=== PATIENT | male | born 1965 | race Caucasian/White ===

== ENCOUNTER 2021-07-03 03:31 | Inpatient (IN) | payer BC ==
[~2021-07-03] VITALS: Ht 182.9 cm; Wt 104.5 kg
[~2021-07-03 03:31] MED LIST: ASPI-612 PO; CYAN500T9 PO; SENN1TAB82 PO
[2021-07-03] MEDS ORDERED: normal saline 1000ML IV soln IVB ONE ×2 (04:05→05:20)
[2021-07-03] MEDS ORDERED: diphenhydrAMINE 50 mg/ml inj IV ONE (04:05)
[2021-07-03] MEDS ORDERED: LIDOcaine Viscous 15ml cup MM ONE (04:05)
[2021-07-03] MEDS ORDERED: metoclopramide 5 mg/ml inj IV ONE (04:05)
[2021-07-03] MEDS ORDERED: mag hydrox/Alum hydrox/simeth 30ml oral suspension PO ONE (04:05)
[2021-07-03 04:14] LABS: BASOPHILS # (AUTO) 0.1 X10'3 (0-0.2); BASOPHILS % (AUTO) 0.6 % (0-1); EOSINOPHILS # (AUTO) 0.3 X10'3 (0-0.9); EOSINOPHILS % (AUTO) 2.6 % (0-6); HEMATOCRIT 47.3 % (42.0-52.0); HEMOGLOBIN 16.8 g/dl (14.0-17.9); LYMPHOCYTES % (AUTO) 19.5 % (21-51); MEAN CORPUSCULAR HEMOGLOBIN 32.6 PG (27.0-31.0); MEAN CORPUSCULAR HGB CONC 35.5 g/dL (33.0-36.5); MEAN PLATELET VOLUME 8.2 FL (7.4-10.4); MONOCYTES # (AUTO) 0.9 X10'3 (0-0.9); MONOCYTES % (AUTO) 8.5 % (2-12); NEUTROPHILS # (AUTO) 7.2 X10'3 (1.8-7.7); NEUTROPHILS % (AUTO) 68.8 % (42-75); PLATELET COUNT 272 X10'3 (140-440); RED BLOOD COUNT 5.14 X10'6 (4.70-6.10); RED CELL DISTRIBUTION WIDTH 12.4 % (11.5-14.5); WHITE BLOOD COUNT 10.5 X10'3 (4.5-11.0)
[2021-07-03 04:22] LABS: ALANINE AMINOTRANSFERASE 51 U/L (12-78); ALBUMIN 4.2 G/DL (3.4-5.0); ALBUMIN/GLOBULIN RATIO 1.1 (1.1-1.5); ALKALINE PHOSPHATASE 72 IU/L (46-116); ANION GAP 13 (8-16); ASPARTATE AMINO TRANSFERASE 11 U/L (10-37); BILIRUBIN,TOTAL 0.7 MG/DL (0.1-1.0); BLOOD UREA NITROGEN 10 MG/DL (7-18); BUN/CREATININE RATIO 10.1 (5.4-32.0); CALCIUM 9.4 MG/DL (8.5-10.1); CHLORIDE 99 MMOL/L (99-107); CREATININE 0.99 MG/DL (0.60-1.10); GLUCOSE 350 MG/DL (70-104); SODIUM 138 MMOL/L (135-145); eGFR 78 ML/MIN
[2021-07-03 04:45] LABS: LIPASE 7835 U/L (73-393)
[2021-07-03] MEDS ORDERED: morphine 4 MG/ML inj SYRINge IV ONE ×2 (05:00→05:35)
[2021-07-03] MEDS ORDERED: lactulose 20gm/30ml cup PO ONE (05:20)
[2021-07-03 05:24] LABS: PLATELET ESTIMATE NORMAL
[2021-07-03 05:25] LABS: TEAR DROP CELLS FEW
[2021-07-03 05:26] LABS: SPHEROCYTES FEW
[2021-07-03] MEDS ORDERED: acetaminophen 325mg tablet PO PRN (07:30)
[2021-07-03] MEDS ORDERED: morphine 2 MG/ML inj. syringe IV PRN ×2 (07:30→11:20)
[2021-07-03] MEDS ORDERED: magnesium Cl slow-release 64mg tablet PO PRN (07:30)
[2021-07-03] MEDS ORDERED: magnesium 4gm in 100ml NS 100 ML IV PRN (07:30)
[2021-07-03] MEDS: normal saline 1000ml 1,000 ML IV SCH ×2 (07:30→17:30)
[2021-07-03] MEDS ORDERED: potassium Cl 20 mEq SR tablet PO PRN ×2 (07:30)
[2021-07-03] MEDS ORDERED: potassium CL 10mEq/100ml bag 100 ML IV PRN (07:30)
[2021-07-03] MEDS ORDERED: magnesium 2GM in 50ml NS 50 ML IV PRN (07:30)
[2021-07-03] MEDS: K and/or MAG REPLACEMENT MC SCH ×2 (08:00→19:08)
[2021-07-03 09:13] LABS: MAGNESIUM 1.8 MG/DL (1.5-2.4); POTASSIUM 4.1 MMOL/L (3.5-5.1)
[2021-07-03] MEDS ORDERED: EMPA25TA PO (10:07)
[2021-07-03] MEDS ORDERED: METF-438 PO (10:07)
--- NOTE | 2021-07-03 11:15 | NUR ---
PT COMPLAINING OF WORSENING PAIN. CALLED. DR. MARTINEZ
--- NOTE | 2021-07-03 11:20 | NUR ---
DR. MARTINEZ GAVE ORDERS FOR 2MG MORPHINE IVP Q 4 PRN.
--- NOTE | 2021-07-03 11:35 | NUR ---
MORPHINE ADMINISTERED. PT STATING "I THINK I MAY NEED TO GO TO [facility] IF MY DR ISNT GOING TO COME BACK TO SEE ME." I EXPLAINED THAT HIS DR HAS BEEN DOWN TO SEE HIM AND HIS CARE IS BEING MONITORED. PT STATING THE PAIN IS TOO BAD, THIS MEDICATION IS NOT WORKING.
[2021-07-03 14:43] LABS: CLARITY,URINE CLEAR (Clear); COLOR,URINE YELLOW (Yellow); GLUCOSE, URINE >=1000 mg/dl (Neg); KETONES,URINE 80 mg/dl (Neg); NITRITES, URINE NEGATIVE (Neg); OCCULT BLOOD,URINE NEGATIVE (Neg); PROTEIN,URINE NEGATIVE (Neg); UA COLLECTION TYPE CLN CATCH MIDSTREAM; UROBILINOGEN,URINE 0.2 E.U/dL (0.2-1.0)
[2021-07-03 14:44] LABS: LEUKOCYTE ESTERASE ,URINE NEGATIVE (Neg)
[2021-07-03 14:59] LABS: BACTERIA,URINE FEW /HPF (Neg); RBC,URINE 0-2 /HPF (0-2); SQUAMOUS EPITHELIAL CELL,UR FEW /LPF (FEW); WBC,URINE 0-4 /HPF (0-4)
[2021-07-03] MEDS: HYDROmorphone 1 mg/ml syringe IV PRN ×2 (15:37→20:12)
[2021-07-03] MEDS: ondansetron/PF 4mg/2ml inj IV PRN (15:40)
[2021-07-03 20:00] VITALS: BP 151/97
[2021-07-03] MEDS ORDERED: temazepam 15mg capsule PO PRN (21:00)
[2021-07-03] MEDS ORDERED: glucagon, human recombinant 1mg kit SUBCUT PRN (23:35)
[2021-07-03] MEDS ORDERED: dextrose ORAL solution 15 GM/59 ML bottle PO PRN ×2 (23:35)
[2021-07-03] MEDS ORDERED: MESSAGE TO PHARMACY PO ONE (23:35)
[2021-07-03] MEDS ORDERED: dextrose 50%-water 50ml dispensing syringe IV PRN ×2 (23:35)
[2021-07-04] VITALS: BP 130/84
[2021-07-04] MEDS: HYDROmorphone 1 mg/ml syringe IV PRN ×5 (00:13→20:56)
[2021-07-04] MEDS: ondansetron/PF 4mg/2ml inj IV PRN ×2 (00:15→21:01)
[2021-07-04] MEDS: normal saline 1000ml 1,000 ML IV SCH ×3 (04:12→23:09)
[2021-07-04 06:20] LABS: BASOPHILS % (AUTO) 0.1 % (0-1); EOSINOPHILS % (AUTO) 0 % (0-6); HEMATOCRIT 45.5 % (42.0-52.0); HEMOGLOBIN 15.9 g/dl (14.0-17.9); LYMPHOCYTES # (AUTO) 1.2 X10'3 (1.1-4.8); MEAN CORPUSCULAR HEMOGLOBIN 32.9 PG (27.0-31.0); MEAN CORPUSCULAR HGB CONC 34.9 g/dL (33.0-36.5); MEAN CORPUSCULAR VOLUME 94.4 FL (78-98); MEAN PLATELET VOLUME 7.9 FL (7.4-10.4); MONOCYTES # (AUTO) 1.3 X10'3 (0-0.9); MONOCYTES % (AUTO) 7.8 % (2-12); NEUTROPHILS # (AUTO) 14.3 X10'3 (1.8-7.7); NEUTROPHILS % (AUTO) 85.1 % (42-75); PLATELET COUNT 267 X10'3 (140-440); RED BLOOD COUNT 4.82 X10'6 (4.70-6.10); RED CELL DISTRIBUTION WIDTH 12.3 % (11.5-14.5); WHITE BLOOD COUNT 16.8 X10'3 (4.5-11.0)
[2021-07-04 06:32] LABS: ALBUMIN 3.6 G/DL (3.4-5.0); ANION GAP 9 (8-16); BLOOD UREA NITROGEN 9 MG/DL (7-18); BUN/CREATININE RATIO 10.6 (5.4-32.0); CALCIUM 8.2 MG/DL (8.5-10.1); CHLORIDE 106 MMOL/L (99-107); CHOL/HDL RATIO 5.6 (0.00-4.99); CHOLESTEROL 217 MG/DL (0-200); CREATININE 0.85 MG/DL (0.60-1.10); GLUCOSE 237 MG/DL (70-104); HDL CHOLESTEROL 39 MG/DL (35-60); LDL CHOLESTEROL 155 MG/DL (50-100); MAGNESIUM 1.9 MG/DL (1.5-2.4); POTASSIUM 3.9 MMOL/L (3.5-5.1); SODIUM 142 MMOL/L (135-145); TRIGLYCERIDES 104 MG/DL (20-135); eGFR > 90 ML/MIN
[2021-07-04 07:00] VITALS: BP 126/76
[2021-07-04] MEDS: aspirin 81mg, enteric-coated 1 TAB TABLET.DR PO SCH ×2 (07:15→21:04)
[2021-07-04] MEDS: K and/or MAG REPLACEMENT MC SCH ×2 (07:15→20:00)
[2021-07-04] MEDS: insulin Lispro (HumaLOG) vial - multi-dose SQ SCH ×3 (08:41→17:33)
--- NOTE | 2021-07-04 11:31 | NUR ---
Diabetes consult: Noted A1C 10 this admit. Provided pt w/ written and verbal DM ed w/ RD contact info. Pt receptive of information. Addendum: 07/04/21 at [address] Amended: Links added.
[2021-07-04 11:52] VITALS: BP 140/86
[2021-07-04 15:04] LABS: LIPASE 2965 U/L (73-393)
--- NOTE | 2021-07-04 18:31 | NUR ---
Problems reprioritized. Patient report given, questions answered & plan of care reviewed with MAMI iSmon.
[2021-07-04 20:00] VITALS: BP 139/86
[2021-07-04] MEDS: insulin glargine (Lantus) pen - multi-dose SQ SCH (22:58)
[2021-07-05] VITALS: BP 107/76
--- NOTE | 2021-07-05 05:37 | NUR ---
left msg for dr elias that pt expressed concern that his urine was concentrated orange in color. awaiting callback
[2021-07-05 06:09] LABS: BASOPHILS % (AUTO) 0.2 % (0-1); EOSINOPHILS % (AUTO) 0.2 % (0-6); HEMATOCRIT 48.6 % (42.0-52.0); HEMOGLOBIN 16.8 g/dl (14.0-17.9); LYMPHOCYTES # (AUTO) 1.3 X10'3 (1.1-4.8); LYMPHOCYTES % (AUTO) 7.5 % (21-51); MEAN CORPUSCULAR HEMOGLOBIN 33.1 PG (27.0-31.0); MEAN CORPUSCULAR HGB CONC 34.7 g/dL (33.0-36.5); MEAN CORPUSCULAR VOLUME 95.5 FL (78-98); MEAN PLATELET VOLUME 8.3 FL (7.4-10.4); MONOCYTES # (AUTO) 1.3 X10'3 (0-0.9); MONOCYTES % (AUTO) 7.7 % (2-12); NEUTROPHILS % (AUTO) 84.4 % (42-75); PLATELET COUNT 247 X10'3 (140-440); RED BLOOD COUNT 5.09 X10'6 (4.70-6.10); RED CELL DISTRIBUTION WIDTH 12.3 % (11.5-14.5); WHITE BLOOD COUNT 16.6 X10'3 (4.5-11.0)
[2021-07-05 06:14] LABS: ALBUMIN 3.4 G/DL (3.4-5.0); ANION GAP 11 (8-16); BLOOD UREA NITROGEN 11 MG/DL (7-18); BUN/CREATININE RATIO 13.4 (5.4-32.0); CALCIUM 8.7 MG/DL (8.5-10.1); CHLORIDE 98 MMOL/L (99-107); CREATININE 0.82 MG/DL (0.60-1.10); GLUCOSE 178 MG/DL (70-104); LIPASE 449 U/L (73-393); MAGNESIUM 2.2 MG/DL (1.5-2.4); POTASSIUM 3.7 MMOL/L (3.5-5.1); SODIUM 135 MMOL/L (135-145); TOTAL CARBON DIOXIDE 25.8 MMOL/L (24-32); eGFR > 90 ML/MIN
[2021-07-05 07:00] VITALS: BP 138/78
[2021-07-05] MEDS: K and/or MAG REPLACEMENT MC SCH ×2 (07:28→20:00)
[2021-07-05] MEDS: aspirin 81mg, enteric-coated 1 TAB TABLET.DR PO SCH ×2 (07:28→20:16)
[2021-07-05] MEDS: levoFLOXACIN-Levaquin 500mg/D5 100 ML IV SCH (09:10)
[2021-07-05] MEDS: normal saline 1000ml 1,000 ML IV SCH ×3 (09:13→23:26)
--- NOTE | 2021-07-05 09:21 | NUR ---
PAGER ID: [phone] MESSAGE: [id number] Anyi Saini: JORDIN.. positive MRSA in nares. thanks! bear [phone]
[2021-07-05] MEDS: ondansetron/PF 4mg/2ml inj IV PRN (12:15)
[2021-07-05] MEDS: HYDROmorphone 1 mg/ml syringe IV PRN ×3 (12:17→23:37)
[2021-07-05 12:30] VITALS: BP 140/87
--- NOTE | 2021-07-05 18:17 | NUR ---
Problems reprioritized. Patient report given, questions answered & plan of care reviewed with MAMI Simon.
[2021-07-05] MEDS: insulin Lispro (HumaLOG) vial - multi-dose SQ SCH (18:55)
[2021-07-05 20:00] VITALS: BP 142/83
[2021-07-05] MEDS: lactobacillus rhamnosus 10,000 MMU CELLS/CAPSULE PO SCH (20:16)
[2021-07-05] MEDS: insulin glargine (Lantus) pen - multi-dose SQ SCH (22:29)
[2021-07-06] VITALS: BP 146/86
[2021-07-06] MEDS: normal saline 1000ml 1,000 ML IV SCH (05:05)
[2021-07-06] MEDS: HYDROmorphone 1 mg/ml syringe IV PRN (05:31)
[2021-07-06 06:16] LABS: BASOPHILS % (AUTO) 0.2 % (0-1); EOSINOPHILS # (AUTO) 0.2 X10'3 (0-0.9); EOSINOPHILS % (AUTO) 1.4 % (0-6); HEMATOCRIT 43.1 % (42.0-52.0); LYMPHOCYTES # (AUTO) 1.3 X10'3 (1.1-4.8); LYMPHOCYTES % (AUTO) 8.7 % (21-51); MEAN CORPUSCULAR HGB CONC 34.7 g/dL (33.0-36.5); MEAN CORPUSCULAR VOLUME 95.2 FL (78-98); MEAN PLATELET VOLUME 8.2 FL (7.4-10.4); MONOCYTES # (AUTO) 1.5 X10'3 (0-0.9); MONOCYTES % (AUTO) 10.5 % (2-12); NEUTROPHILS # (AUTO) 11.5 X10'3 (1.8-7.7); NEUTROPHILS % (AUTO) 79.2 % (42-75); PLATELET COUNT 274 X10'3 (140-440); RED BLOOD COUNT 4.53 X10'6 (4.70-6.10); RED CELL DISTRIBUTION WIDTH 12.7 % (11.5-14.5); WHITE BLOOD COUNT 14.6 X10'3 (4.5-11.0)
[2021-07-06 06:19] LABS: ALBUMIN 2.9 G/DL (3.4-5.0); ANION GAP 6 (8-16); BLOOD UREA NITROGEN 11 MG/DL (7-18); BUN/CREATININE RATIO 14.7 (5.4-32.0); CALCIUM 8.2 MG/DL (8.5-10.1); CHLORIDE 105 MMOL/L (99-107); CREATININE 0.75 MG/DL (0.60-1.10); GLUCOSE 159 MG/DL (70-104); MAGNESIUM 2.1 MG/DL (1.5-2.4); POTASSIUM 3.4 MMOL/L (3.5-5.1); SODIUM 136 MMOL/L (135-145); TOTAL CARBON DIOXIDE 24.7 MMOL/L (24-32); eGFR > 90 ML/MIN
--- NOTE | 2021-07-06 06:46 | NUR ---
Patient in room [facility] 345A. I have received report from MAMI ARTEAGA and had the opportunity to ask questions and assume patient care.
[2021-07-06 07:00] VITALS: BP 157/91
[2021-07-06] MEDS: K and/or MAG REPLACEMENT MC SCH (08:00)
[2021-07-06] MEDS: lactobacillus rhamnosus 10,000 MMU CELLS/CAPSULE PO SCH (09:36)
[2021-07-06] MEDS ORDERED: METR-159 PO (09:36)
[2021-07-06] MEDS: levoFLOXACIN-Levaquin 500mg/D5 100 ML IV SCH (09:36)
[2021-07-06] MEDS ORDERED: LEVO500T90 PO (09:36)
[2021-07-06] MEDS: aspirin 81mg, enteric-coated 1 TAB TABLET.DR PO SCH (09:36)
[2021-07-06 10:09] LABS: LIPASE 134 U/L (73-393)
[2021-07-06 11:00] VITALS: BP 136/81
--- NOTE | 2021-07-06 12:00 | NUR ---
PATIENT STABLE AND APPROPRIATE FOR DISCHARGE, IV TAKEN OUT, EDUCATION GIVEN, NEW MEDS E-SCRIPTED TO PREFERRED PHARMACY, ALL BELONGINGS SENT WITH PATIENT, PATIENT TAKEN TO LOBBY BY WHEELCHAIR TO AN AWAITING CAR WHERE PATIENT'S FAMILY MEMBER WILL TAKE PATIENT HOME
[2021-07-07] MEDS ORDERED: HYDR-3965 PO (00:11)
[2021-07-07] MEDS ORDERED: ONDA8TAB13 PO (00:27)
== END 2021-07-06 12:11 | disposition home or self-care (01) | DRG 391 ==
LOC: ER 03:32 → ED HOLD 07:29 → SUR 3N 19:45
PROVIDERS: ADMIT Internal Medicine; ATTEND Internal Medicine
DX: K52.9 Noninfective gastroenteritis and colitis, unspecified (principal); K85.90 Acute pancreatitis without necrosis or infection, unspecified; E11.9 Type 2 diabetes mellitus without complications; F17.210 Nicotine dependence, cigarettes, uncomplicated; R03.0 Elevated blood-pressure reading, without diagnosis of hypertension; Z79.82 Long term (current) use of aspirin; Z79.84 Long term (current) use of oral hypoglycemic drugs; Z86.711 Personal history of pulmonary embolism; Z71.6 Tobacco abuse counseling
CPT/HCPCS: 36415; 71045; 74176; 80048; 80053; 80061; 81001; 82948; 83036; 83690; 83735; 84132; 84484; 85008; 85025; 87081; 93005; 99285; G0378; J1170; J1200; J1815; J1956; J2270; J2405; J2765; J7030

== ENCOUNTER 2021-07-06 18:47 | Emergency (ER) | payer BC ==
[~2021-07-06] VITALS: Ht 182.9 cm; Wt 106.8 kg
[~2021-07-06 18:47] MED LIST changes: +EMPA25TA PO; +LEVO500T90 PO; +METF-438 PO; +METR-159 PO
[2021-07-06 20:58] LABS: BASOPHILS % (AUTO) 0.3 % (0-1); EOSINOPHILS # (AUTO) 0.1 X10'3 (0-0.9); EOSINOPHILS % (AUTO) 1.1 % (0-6); HEMATOCRIT 41.4 % (42.0-52.0); HEMOGLOBIN 14.8 g/dl (14.0-17.9); LYMPHOCYTES # (AUTO) 1.3 X10'3 (1.1-4.8); MEAN CORPUSCULAR HEMOGLOBIN 32.9 PG (27.0-31.0); MEAN CORPUSCULAR HGB CONC 35.7 g/dL (33.0-36.5); MEAN CORPUSCULAR VOLUME 92.2 FL (78-98); MEAN PLATELET VOLUME 7.9 FL (7.4-10.4); MONOCYTES # (AUTO) 1.5 X10'3 (0-0.9); MONOCYTES % (AUTO) 11.8 % (2-12); NEUTROPHILS # (AUTO) 9.9 X10'3 (1.8-7.7); NEUTROPHILS % (AUTO) 76.8 % (42-75); PLATELET COUNT 308 X10'3 (140-440); RED BLOOD COUNT 4.49 X10'6 (4.70-6.10); RED CELL DISTRIBUTION WIDTH 12.3 % (11.5-14.5); WHITE BLOOD COUNT 12.9 X10'3 (4.5-11.0)
[2021-07-06 21:13] LABS: ALANINE AMINOTRANSFERASE 22 U/L (12-78); ALBUMIN/GLOBULIN RATIO 0.7 (1.1-1.5); ALKALINE PHOSPHATASE 67 IU/L (46-116); ANION GAP 11 (8-16); ASPARTATE AMINO TRANSFERASE 14 U/L (10-37); BLOOD UREA NITROGEN 10 MG/DL (7-18); BUN/CREATININE RATIO 13.3 (5.4-32.0); CALCIUM 8.5 MG/DL (8.5-10.1); CHLORIDE 102 MMOL/L (99-107); CREATININE 0.75 MG/DL (0.60-1.10); GLUCOSE 168 MG/DL (70-104); LIPASE 88 U/L (73-393); POTASSIUM 3.1 MMOL/L (3.5-5.1); SODIUM 139 MMOL/L (135-145); TOTAL CARBON DIOXIDE 25.9 MMOL/L (24-32); TOTAL PROTEIN 7.1 G/DL (6.4-8.2); eGFR > 90 ML/MIN
[2021-07-06] MEDS ORDERED: ondansetron/PF 4mg/2ml inj IV ONE (22:55)
[2021-07-06] MEDS ORDERED: morphine 2 MG/ML inj. syringe IV ONE (22:55)
[2021-07-06 23:03] LABS: ETHANOL < 0.010 GM/DL (0.0-0.010)
[2021-07-06] MEDS ORDERED: potassium CL 10mEq/100ml bag 100 ML IV PRN (23:10)
[2021-07-06] MEDS ORDERED: calcium chloride 100 MG/1 ML inj IV ONE (23:10)
[2021-07-07] MEDS ORDERED: HYDR-3965 PO (00:11)
[2021-07-07] MEDS ORDERED: proCHLORperazine 10 MG/2 ml inj IV ONE (00:15)
[2021-07-07] MEDS ORDERED: morphine 2 MG/ML inj. syringe IV ONE (00:15)
[2021-07-07] MEDS ORDERED: ONDA8TAB13 PO (00:27)
[2021-07-07 01:33] VITALS: BP 156/86
== END 2021-07-07 01:15 | disposition home or self-care (01) ==
LOC: ER 18:48
DX: K85.90 Acute pancreatitis without necrosis or infection, unspecified (principal); E87.6 Hypokalemia; R11.2 Nausea with vomiting, unspecified; R10.84 Generalized abdominal pain; E11.9 Type 2 diabetes mellitus without complications; Z87.01 Personal history of pneumonia (recurrent); Z98.890 Other specified postprocedural states; Z72.89 Other problems related to lifestyle; Z79.82 Long term (current) use of aspirin; Z79.2 Long term (current) use of antibiotics; Z79.899 Other long term (current) drug therapy
CPT/HCPCS: 36415; 80053; 80320; 83690; 83735; 85025; 96374; 96375; 96376; 99284; J0780; J2270; J2405

== ENCOUNTER 2023-10-18 17:04 | Inpatient (IN) | payer BC ==
[~2023-10-18] VITALS: Ht 182.9 cm; Wt 106.8 kg
[~2023-10-18 17:04] MED LIST changes: -CYAN500T9 PO; -LEVO500T90 PO; -METR-159 PO; +ONDA8TAB13 PO; -SENN1TAB82 PO
[2023-10-18] MEDS: ondansetron/PF 4mg/2ml inj IV ONE (18:32)
[2023-10-18] MEDS: morphine 4 MG/ML inj SYRINge IV ONE (18:39)
[2023-10-18] MEDS: normal saline 1000ML IV soln IV ONE (18:39)
[2023-10-18 18:43] LABS: ALANINE AMINOTRANSFERASE 37 U/L (12-78); ALBUMIN 4.6 G/DL (3.4-5.0); ALBUMIN/GLOBULIN RATIO 1.2 (1.1-1.5); ALKALINE PHOSPHATASE 73 IU/L (46-116); ANION GAP 15 (8-16); ASPARTATE AMINO TRANSFERASE 31 U/L (10-37); BILIRUBIN,TOTAL 0.9 MG/DL (0.1-1.0); BLOOD UREA NITROGEN 17 MG/DL (7-18); BUN/CREATININE RATIO 16.5 (10.0-20.0); CALCIUM 9.5 MG/DL (8.5-10.1); CHLORIDE 104 MMOL/L (99-107); CREATININE 1.03 MG/DL (0.60-1.10); EOSINOPHILS # (AUTO) 0.1 X10'3 (0-0.9); GLUCOSE 130 MG/DL (70-104); HEMOGLOBIN 17.8 g/dl (14.0-17.9); MEAN CORPUSCULAR VOLUME 95.6 FL (78-98); PLATELET COUNT 242 X10'3 (140-440); POTASSIUM 3.7 MMOL/L (3.5-5.1); SODIUM 142 MMOL/L (135-145); TOTAL CARBON DIOXIDE 22.9 MMOL/L (24-32); TOTAL PROTEIN 8.6 G/DL (6.4-8.2); eCRCL 85 ML/MIN; eGFR 74 ML/MIN
[2023-10-18 18:45] LABS: BASOPHILS # (AUTO) 0.1 X10'3 (0-0.2); BASOPHILS % (AUTO) 0.5 % (0-1); EOSINOPHILS % (AUTO) 1.3 % (0-6); HEMATOCRIT 51.3 % (42.0-52.0); LYMPHOCYTES % (AUTO) 20.4 % (21-51); MEAN CORPUSCULAR HEMOGLOBIN 33.2 PG (27.0-31.0); MEAN CORPUSCULAR HGB CONC 34.7 g/dL (33.0-36.5); MEAN PLATELET VOLUME 8.5 FL (7.4-10.4); MONOCYTES # (AUTO) 0.9 X10'3 (0-0.9); MONOCYTES % (AUTO) 8.8 % (2-12); NEUTROPHILS # (AUTO) 6.8 X10'3 (1.8-7.7); RED BLOOD COUNT 5.37 X10'6 (4.70-6.10); RED CELL DISTRIBUTION WIDTH 13.3 % (11.5-14.5); WHITE BLOOD COUNT 9.9 X10'3 (4.5-11.0)
[2023-10-18] MEDS ORDERED: iohexol 300mg/ml 100ml inj. ONE (18:58)
[2023-10-18 19:06] LABS: BILIRUBIN,URINE NEGATIVE (Neg); CLARITY,URINE CLEAR (Clear); COLOR,URINE YELLOW (Yellow); GLUCOSE, URINE >=1000 mg/dl (Neg); KETONES,URINE 40 mg/dl (Neg); LEUKOCYTE ESTERASE ,URINE NEGATIVE (Neg); NITRITES, URINE NEGATIVE (Neg); OCCULT BLOOD,URINE TRACE-INTACT (Neg); PROTEIN,URINE 30 mg/dl (Neg); UROBILINOGEN,URINE 0.2 E.U/dL (0.2-1.0)
[2023-10-18 19:11] LABS: UA COLLECTION TYPE CLN CATCH MIDSTREAM
[2023-10-18 19:18] LABS: RBC,URINE NONE SEEN /HPF (0-2); WBC,URINE 0-4 /HPF (0-4)
[2023-10-18 19:19] LABS: BACTERIA,URINE NONE SEEN /HPF (Neg); MUCUS STRANDS NONE SEEN /LPF (Neg)
[2023-10-18 19:20] LABS: LIPASE > 375 U/L (16-77)
[2023-10-18 19:22] LABS: SQUAMOUS EPITHELIAL CELL,UR FEW /LPF (FEW)
[2023-10-18] MEDS ORDERED: acetaminophen 325mg tablet PO PRN ×2 (20:45)
[2023-10-18] MEDS ORDERED: morphine 2 MG/ML inj. syringe IV PRN (20:45)
[2023-10-18] MEDS ORDERED: HYDROcodone/acetaminophen 5mg/325mg tablet PO PRN (20:45)
[2023-10-18] MEDS ORDERED: potassium Cl 20 mEq SR tablet PO PRN ×2 (20:45)
[2023-10-18] MEDS ORDERED: magnesium Cl slow-release 64mg tablet PO PRN (20:45)
[2023-10-18] MEDS ORDERED: potassium Cl 40MEQ/1/2NS 520ml 520 ML IV PRN (20:45)
[2023-10-18] MEDS ORDERED: magnesium 4gm in 100ml NS 100 ML IV PRN (20:45)
[2023-10-18] MEDS ORDERED: magnesium 2GM in 50ml NS 50 ML IV PRN (20:45)
[2023-10-18] MEDS ORDERED: LORazepam 1 MG tablet PO PRN (20:50)
[2023-10-18] MEDS ORDERED: haloperidol lactate 5mg/ml inj IM PRN (20:50)
[2023-10-18] MEDS ORDERED: haloperidol 5mg tablet PO PRN (20:50)
[2023-10-18 21:21] LABS: ETHANOL < 10 MG/DL (<10)
[2023-10-18 21:22] LABS: URINE AMPHETAMINE SCREEN NEGATIVE (Neg); URINE BARBITUATE SCREEN NEGATIVE (Neg); URINE BENZODIAZEPINES SCREEN NEGATIVE (Neg); URINE CANNABINOID SCREEN NEGATIVE (Neg); URINE COCAINE SCREEN NEGATIVE (Neg); URINE METHADONE SCREEN NEGATIVE (Neg); URINE OPIATE SCREEN NEGATIVE (Neg); URINE PHENCYCLIDINE SCREEN NEGATIVE (Neg)
[2023-10-18] MEDS: morphine 2 MG/ML inj. syringe IV PRN (21:31)
[2023-10-18] MEDS: thiamine 100mg/ml 2ml inj. IV SCH (22:00)
[2023-10-18] MEDS: HYDROmorphone 1 mg/ml syringe IV ONE (22:05)
[2023-10-18] MEDS: ondansetron/PF 4mg/2ml inj IV PRN (22:05)
[2023-10-18] MEDS ORDERED: dextrose 50%-water 50ml dispensing syringe IV PRN ×2 (22:15)
[2023-10-18] MEDS ORDERED: glucagon, human recombinant 1mg kit SUBCUT PRN (22:15)
[2023-10-18] MEDS ORDERED: insulin Lispro (HumaLOG) vial - multi-dose SQ SCH (22:15)
[2023-10-18] MEDS ORDERED: DEXTROSE 15 GM of carb/4 tabs (each vial/BOTTLE has 4 tablets) PO PRN ×2 (22:15)
[2023-10-18 22:30] VITALS: BP 148/75; PULSE 74; RESP 19; TEMP 98.6; O2SAT 91
[2023-10-18] MEDS: MESSAGE TO PHARMACY PO ONE (22:40)
[2023-10-18 23:00] VITALS: RESP 19; O2SAT 91
[2023-10-18] MEDS: normal saline 1000ml 1,000 ML IV SCH (23:08)
[2023-10-19] VITALS (7 sets, daily range): BP systolic 122–151; BP diastolic 71–84; PULSE 70–89; RESP 12–21; TEMP 97.6–98.4; O2SAT 90–96
[2023-10-19] MEDS: LORazepam 2 mg/ml vial IV PRN (00:10)
[2023-10-19 06:52] LABS: BASOPHILS % (AUTO) 0.2 % (0-1); EOSINOPHILS % (AUTO) 0 % (0-6); HEMATOCRIT 47.4 % (42.0-52.0); HEMOGLOBIN 16.2 g/dl (14.0-17.9); LYMPHOCYTES # (AUTO) 1.1 X10'3 (1.1-4.8); LYMPHOCYTES % (AUTO) 7.6 % (21-51); MEAN CORPUSCULAR HEMOGLOBIN 33.2 PG (27.0-31.0); MEAN CORPUSCULAR HGB CONC 34.2 g/dL (33.0-36.5); MEAN PLATELET VOLUME 7.8 FL (7.4-10.4); MONOCYTES # (AUTO) 0.8 X10'3 (0-0.9); MONOCYTES % (AUTO) 5.4 % (2-12); NEUTROPHILS # (AUTO) 12.6 X10'3 (1.8-7.7); NEUTROPHILS % (AUTO) 86.8 % (42-75); PLATELET COUNT 210 X10'3 (140-440); RED BLOOD COUNT 4.89 X10'6 (4.70-6.10); RED CELL DISTRIBUTION WIDTH 13.2 % (11.5-14.5); WHITE BLOOD COUNT 14.5 X10'3 (4.5-11.0)
[2023-10-19 07:25] LABS: ALANINE AMINOTRANSFERASE 39 U/L (12-78); ALBUMIN 3.7 G/DL (3.4-5.0); ALBUMIN/GLOBULIN RATIO 1.1 (1.1-1.5); ALKALINE PHOSPHATASE 61 IU/L (46-116); ANION GAP 12 (8-16); ASPARTATE AMINO TRANSFERASE 26 U/L (10-37); BILIRUBIN,TOTAL 0.8 MG/DL (0.1-1.0); BLOOD UREA NITROGEN 13 MG/DL (7-18); BUN/CREATININE RATIO 15.1 (10.0-20.0); CALCIUM 7.7 MG/DL (8.5-10.1); CHLORIDE 109 MMOL/L (99-107); CREATININE 0.86 MG/DL (0.60-1.10); GLUCOSE 101 MG/DL (70-104); MAGNESIUM 1.9 MG/DL (1.5-2.4); PHOSPHORUS 4.5 MG/DL (2.3-4.5); POTASSIUM 4.1 MMOL/L (3.5-5.1); SODIUM 143 MMOL/L (135-145); TOTAL CARBON DIOXIDE 21.9 MMOL/L (24-32); eCRCL 102 ML/MIN; eGFR > 90 ML/MIN
[2023-10-19] MEDS: folic acid 1mg/0.2ml inj IV SCH (07:32)
[2023-10-19] MEDS: heparin, porcine 5000 units/ml vial SQ SCH (07:32)
[2023-10-19 08:04] LABS: LIPASE > 375 U/L (16-77)
[2023-10-19] MEDS: HYDROmorphone inj. 0.5 MG/0.5 ML DISP.SYRIN IV PRN (09:46)
[2023-10-19] MEDS: normal saline 1000ml 1,000 ML IV SCH (09:49)
[2023-10-19] MEDS: magnesium hydroxide 30ml (MOM) UD suspension PO PRN (10:06)
[2023-10-19] MEDS: insulin glargine (Lantus) pen - multi-dose SQ SCH (21:00)
[2023-10-20 06:00] VITALS: PULSE 72; RESP 18; TEMP 98.6; O2SAT 99
[2023-10-20 09:07] LABS: BASOPHILS % (AUTO) 0.2 % (0-1); EOSINOPHILS # (AUTO) 0.1 X10'3 (0-0.9); EOSINOPHILS % (AUTO) 0.8 % (0-6); HEMOGLOBIN 15.8 g/dl (14.0-17.9); LYMPHOCYTES # (AUTO) 1.3 X10'3 (1.1-4.8); LYMPHOCYTES % (AUTO) 8.8 % (21-51); MEAN CORPUSCULAR HEMOGLOBIN 32.8 PG (27.0-31.0); MEAN CORPUSCULAR VOLUME 99.5 FL (78-98); MEAN PLATELET VOLUME 8.7 FL (7.4-10.4); MONOCYTES # (AUTO) 1.1 X10'3 (0-0.9); MONOCYTES % (AUTO) 7.5 % (2-12); NEUTROPHILS # (AUTO) 11.9 X10'3 (1.8-7.7); NEUTROPHILS % (AUTO) 82.7 % (42-75); PLATELET COUNT 197 X10'3 (140-440); RED BLOOD COUNT 4.83 X10'6 (4.70-6.10); RED CELL DISTRIBUTION WIDTH 13.1 % (11.5-14.5); WHITE BLOOD COUNT 14.4 X10'3 (4.5-11.0)
[2023-10-20 09:45] LABS: ALANINE AMINOTRANSFERASE 26 U/L (12-78); ALBUMIN 3.3 G/DL (3.4-5.0); ALBUMIN/GLOBULIN RATIO 0.8 (1.1-1.5); ALKALINE PHOSPHATASE 52 IU/L (46-116); ANION GAP 17 (8-16); ASPARTATE AMINO TRANSFERASE 21 U/L (10-37); BILIRUBIN,TOTAL 0.8 MG/DL (0.1-1.0); BLOOD UREA NITROGEN 13 MG/DL (7-18); BUN/CREATININE RATIO 18.6 (10.0-20.0); CALCIUM 8.1 MG/DL (8.5-10.1); CHLORIDE 112 MMOL/L (99-107); GLUCOSE 86 MG/DL (70-104); MAGNESIUM 2.5 MG/DL (1.5-2.4); PHOSPHORUS 2.3 MG/DL (2.3-4.5); POTASSIUM 4.2 MMOL/L (3.5-5.1); SODIUM 146 MMOL/L (135-145); TOTAL CARBON DIOXIDE 16.6 MMOL/L (24-32); TOTAL PROTEIN 7.2 G/DL (6.4-8.2); eCRCL 125 ML/MIN; eGFR > 90 ML/MIN
[2023-10-20 10:00] VITALS: BP 154/87; PULSE 77; RESP 16; TEMP 97.6; O2SAT 91
[2023-10-20 10:57] LABS: LIPASE > 375 U/L (16-77)
[2023-10-20 20:00] VITALS: RESP 15; O2SAT 98
[2023-10-20] MEDS: HYDROcodone/acetaminophen 10/325mg tab PO PRN (20:01)
[2023-10-20 20:38] VITALS: PULSE 78; RESP 19; O2SAT 97
[2023-10-20 22:00] VITALS: BP 133/77; PULSE 67; RESP 20; TEMP 97.6; O2SAT 95
[2023-10-20 23:41] VITALS: PULSE 80; RESP 15; O2SAT 97
[2023-10-21 03:31] VITALS: PULSE 75; RESP 19; O2SAT 94
[2023-10-21 06:00] VITALS: BP 136/75; PULSE 74; RESP 16; TEMP 97.9; O2SAT 98
[2023-10-21 07:50] LABS: BASOPHILS % (AUTO) 0.3 % (0-1); EOSINOPHILS # (AUTO) 0.5 X10'3 (0-0.9); EOSINOPHILS % (AUTO) 4.4 % (0-6); HEMATOCRIT 45.1 % (42.0-52.0); HEMOGLOBIN 15.3 g/dl (14.0-17.9); LYMPHOCYTES # (AUTO) 1.3 X10'3 (1.1-4.8); LYMPHOCYTES % (AUTO) 10.5 % (21-51); MEAN PLATELET VOLUME 8.3 FL (7.4-10.4); MONOCYTES # (AUTO) 1.2 X10'3 (0-0.9); NEUTROPHILS % (AUTO) 74.8 % (42-75); PLATELET COUNT 222 X10'3 (140-440); RED BLOOD COUNT 4.65 X10'6 (4.70-6.10); RED CELL DISTRIBUTION WIDTH 12.8 % (11.5-14.5)
[2023-10-21 08:14] LABS: ALANINE AMINOTRANSFERASE 26 U/L (12-78); ALBUMIN/GLOBULIN RATIO 0.8 (1.1-1.5); ALKALINE PHOSPHATASE 57 IU/L (46-116); ANION GAP 7 (8-16); ASPARTATE AMINO TRANSFERASE 18 U/L (10-37); BILIRUBIN,TOTAL 0.8 MG/DL (0.1-1.0); BLOOD UREA NITROGEN 9 MG/DL (7-18); BUN/CREATININE RATIO 11.7 (10.0-20.0); CALCIUM 7.8 MG/DL (8.5-10.1); CHLORIDE 107 MMOL/L (99-107); CREATININE 0.77 MG/DL (0.60-1.10); GLUCOSE 115 MG/DL (70-104); LIPASE 76 U/L (16-77); MAGNESIUM 2.1 MG/DL (1.5-2.4); PHOSPHORUS 1.5 MG/DL (2.3-4.5); POTASSIUM 3.5 MMOL/L (3.5-5.1); SODIUM 140 MMOL/L (135-145); TOTAL CARBON DIOXIDE 26.3 MMOL/L (24-32); TOTAL PROTEIN 6.7 G/DL (6.4-8.2); eCRCL 113 ML/MIN; eGFR > 90 ML/MIN
[2023-10-21 08:35] VITALS: RESP 16; O2SAT 96
[2023-10-21 10:30] VITALS: BP 139/80; PULSE 77; RESP 18; TEMP 97.7; O2SAT 94
[2023-10-21] MEDS ORDERED: THIA50TA10 PO (12:17)
[2023-10-21] MEDS ORDERED: MULT-1074 PO (12:17)
[2023-10-21] MEDS ORDERED: FOLI0.4T14 PO (12:17)
== END 2023-10-21 13:30 | disposition home or self-care (01) | DRG 440 ==
LOC: ER 17:05 → ED HOLD 20:48 → ORTHO 4S 22:12
PROVIDERS: ADMIT Internal Medicine; ATTEND Internal Medicine
PROC: 5A09357 Assistance with Respiratory Ventilation, Less than 24 Consecutive Hours, Continuous Positive Airway Pressure (ICD-10-PCS; principal; 2023-10-19)
PROC: 5A09357 Assistance with Respiratory Ventilation, Less than 24 Consecutive Hours, Continuous Positive Airway Pressure (ICD-10-PCS; 2023-10-20)
DX: K85.20 Alcohol induced acute pancreatitis without necrosis or infection (principal); I10 Essential (primary) hypertension; E11.9 Type 2 diabetes mellitus without complications; Z86.711 Personal history of pulmonary embolism; Z79.82 Long term (current) use of aspirin; Z79.84 Long term (current) use of oral hypoglycemic drugs; Z79.899 Other long term (current) drug therapy
CPT/HCPCS: 36415; 74177; 80053; 80305; 80320; 81001; 82948; 83036; 83690; 83735; 84100; 85025; 87040; 94660; 94760; 99285; A4615; C1758; G0378; J1170; J1644; J1815; J2060; J2270; J2405; J3411; J3490; J7030; Q9967

== ENCOUNTER 2024-12-04 07:06 | Emergency (ER) | payer BC ==
[~2024-12-04] VITALS: Ht 182.9 cm; Wt 86.3 kg
[~2024-12-04 07:06] MED LIST changes: +FOLI0.4T14 PO; +MULT-1074 PO; +ONDA-245 PO; -ONDA8TAB13 PO; +THIA50TA10 PO
[2024-12-04 07:07] VITALS: TEMP 97.5
[2024-12-04 07:37] LABS: BASOPHILS # (AUTO) 0.1 X10'3 (0-0.2); BASOPHILS % (AUTO) 0.8 % (0-1); EOSINOPHILS # (AUTO) 0.5 X10'3 (0-0.9); HEMATOCRIT 49.3 % (42.0-52.0); HEMOGLOBIN 17.2 g/dl (14.0-17.9); LYMPHOCYTES # (AUTO) 1.9 X10'3 (1.1-4.8); MEAN CORPUSCULAR HEMOGLOBIN 33.1 PG (27.0-31.0); MEAN CORPUSCULAR VOLUME 94.6 FL (78-98); MEAN PLATELET VOLUME 7.4 FL (7.4-10.4); MONOCYTES # (AUTO) 0.7 X10'3 (0-0.9); MONOCYTES % (AUTO) 10.6 % (2-12); NEUTROPHILS # (AUTO) 3.5 X10'3 (1.8-7.7); NEUTROPHILS % (AUTO) 52.6 % (42-75); PLATELET COUNT 209 X10'3 (140-440); RED BLOOD COUNT 5.21 X10'6 (4.70-6.10); RED CELL DISTRIBUTION WIDTH 13.2 % (11.5-14.5); WHITE BLOOD COUNT 6.6 X10'3 (4.5-11.0)
[2024-12-04 07:46] LABS: ALANINE AMINOTRANSFERASE 35 U/L (12-78); ALBUMIN 4.3 G/DL (3.4-5.0); ALBUMIN/GLOBULIN RATIO 1.3 (1.1-1.5); ALKALINE PHOSPHATASE 70 IU/L (46-116); ANION GAP 9 (8-16); ASPARTATE AMINO TRANSFERASE 21 U/L (10-37); BILIRUBIN,TOTAL 0.9 MG/DL (0.1-1.0); BLOOD UREA NITROGEN 10 MG/DL (7-18); BUN/CREATININE RATIO 11.4 (10.0-20.0); CALCIUM 8.7 MG/DL (8.5-10.1); CHLORIDE 106 MMOL/L (99-107); CREATININE 0.88 MG/DL (0.60-1.10); GLUCOSE 167 MG/DL (70-104); POTASSIUM 3.9 MMOL/L (3.5-5.1); SODIUM 143 MMOL/L (135-145); TOTAL CARBON DIOXIDE 27.7 MMOL/L (24-32); TOTAL PROTEIN 7.6 G/DL (6.4-8.2); eCRCL 97 ML/MIN; eGFR 88 ML/MIN
[2024-12-04] MEDS: normal saline 1000ml 1,000 ML IV ONE (07:53)
[2024-12-04 08:03] LABS: BILIRUBIN,URINE NEGATIVE (Neg); CLARITY,URINE CLEAR (Clear); COLOR,URINE YELLOW (Yellow); GLUCOSE, URINE >=1000 mg/dl (Neg); KETONES,URINE NEGATIVE (Neg); LEUKOCYTE ESTERASE ,URINE NEGATIVE (Neg); NITRITES, URINE NEGATIVE (Neg); OCCULT BLOOD,URINE NEGATIVE (Neg); PROTEIN,URINE NEGATIVE (Neg); UROBILINOGEN,URINE 0.2 E.U/dL (0.2-1.0)
[2024-12-04 08:09] LABS: UA COLLECTION TYPE NON-SPECIFIED
[2024-12-04 08:13] LABS: BACTERIA,URINE NONE SEEN /HPF (Neg); MUCUS STRANDS FEW /LPF (Neg); RBC,URINE NONE SEEN /HPF (0-2); SQUAMOUS EPITHELIAL CELL,UR NONE SEEN /LPF (FEW); WBC,URINE NONE SEEN /HPF (0-4)
[2024-12-04 08:32] LABS: LIPASE > 375 U/L (16-77)
[2024-12-04] MEDS ORDERED: HYDR-3965 PO (08:52)
[2024-12-04 10:08] VITALS: BP 132/85; PULSE 66; RESP 16; O2SAT 96
== END 2024-12-04 10:10 | disposition home or self-care (01) ==
LOC: ER 07:07
DX: K85.90 Acute pancreatitis without necrosis or infection, unspecified (principal); F10.90 Alcohol use, unspecified, uncomplicated; E11.9 Type 2 diabetes mellitus without complications; Z87.19 Personal history of other diseases of the digestive system; Z86.711 Personal history of pulmonary embolism; Z79.84 Long term (current) use of oral hypoglycemic drugs; Z79.82 Long term (current) use of aspirin; Z79.899 Other long term (current) drug therapy; Y90.9 Presence of alcohol in blood, level not specified
CPT/HCPCS: 36415; 80053; 81001; 83690; 85025; 96360; 99284; J7030